=== PATIENT | male | born 1985 | race Caucasian/White ===

== ENCOUNTER 2023-05-03 06:38 | Emergency (ER) | payer OTHER ==
[2023-05-03] MEDS ORDERED: Ibuprofen 600 MG Tab PO ONE (07:09)
== END 2023-05-03 07:50 | disposition home or self-care (01) ==
LOC: MW.ED 06:38
DX: M25.572 Pain in left ankle and joints of left foot (principal)
CPT/HCPCS: 73610; 99283; A9270